=== PATIENT | female | born 1990 | race Caucasian/White ===

== ENCOUNTER 2016-12-02 09:59 | Inpatient (IN) | payer OTHER ==
[~2016-12-02] VITALS: Ht 162.6 cm; Wt 83.6 kg
[~2016-12-02 09:59] MED LIST: MOTRIN 800800 MG/TAB PO; PERCOCET 325 MG1 TA2 PO; PRENATAL1 TA7 PO
[2017-01-07] VITALS (29 sets, daily range): BP systolic 81–132; BP diastolic 44–79; PULSE 83–134; TEMP 97.7–98.8
[2017-01-07 08:41] LABS: BASO # 0.1 (0.0-0.2); BASO % 0.6 % (0.0-2.0); EOS # 0.1 (0.0-0.7); EOS % 0.8 % (0-4.0); GRAN # 10.6 (1.4-6.5); GRAN % 79.7 % (42.2-75.2); LYMPH # 1.6 (1.2-3.4); LYMPH % 11.9 % (20.0-51.0); MEAN CELL VOLUME 88 fl (80.0-100.0); MEAN CORPUSCULAR HGB CONC 33 g/dl (33.0-37.0); MEAN PLATELET VOLUME 11.3 fl (7.4-10.4); MONO # 0.8 (0.1-0.6); MONO % 6.2 % (1.7-9.3); PLATELET COUNT 238 K/mm3 (130-400); RED BLOOD COUNT 3.91 M/mm3 (4.10-5.30); REDCELL DISTRIBUTION WIDTH-CV 13.3 % (11.5-14.5); WHITE BLOOD COUNT 13.3 K/mm3 (4.8-10.8)
[2017-01-07 08:45] LABS: HEMATOCRIT 34.5 % (37.0-47.0); HEMOGLOBIN 11.4 g/dl (12.5-16.0); MEAN CORPUSCULAR HEMOGLOBIN 29 pg (27.0-31.0)
[2017-01-08 01:50] VITALS: BP 110/62; PULSE 79; TEMP 98.6
[2017-01-08 05:30] VITALS: BP 117/71; PULSE 89; TEMP 97.5
[2017-01-08] MEDS ORDERED: IBU800 M1 PO (08:10)
[2017-01-08] MEDS ORDERED: PERCOCET 325 MG1 TA2 PO (08:10)
[2017-01-08 10:00] VITALS: BP 115/77; PULSE 113; TEMP 98
== END 2017-01-08 12:55 | disposition home or self-care (01) | DRG 775 ==
LOC: EDSTATUS 12-29 06:14 → LDRO 12-29 09:59 → LDR 01-07 06:15 → OB 01-07 06:49 → LDR 01-07 06:49 → OB 01-07 15:00
PROVIDERS: Obstetrics & Gynecology
PROC: 10E0XZZ Delivery of Products of Conception, External Approach (ICD-10-PCS; principal; 2017-01-07)
PROC: 3E033VJ Introduction of Other Hormone into Peripheral Vein, Percutaneous Approach (ICD-10-PCS; 2017-01-07)
DX: O75.89 Other specified complications of labor and delivery (principal); Z3A.39 39 weeks gestation of pregnancy; Z37.0 Single live birth
CPT/HCPCS: J2590; J7120

== ENCOUNTER → 2017-01-09 | Outpatient (CLI) | payer OTHER ==
[~2017-01-09] MED LIST changes: +IBU800 M1 PO
--- NOTE | 2017-01-09 11:58 | NUR ---
Pt, Maya Friedman, into office with two day old baby boy, Julio César Friedman, for a consult because they were seen for a follow up bilirubing and it was noted he was not nursing well, and his weight was down more. They are accompanied by her spouse, Silver Friedman. They anticipate following up for care at [facility]. Julio César was born on [birth year] by to this experienced mom. She felt Julio César was doing well with BF during their stay. She has also been her toddler through the and desires to tandem nurse. Julio César weighed 8#10.8oz (3935 gms) at , discharge was 8#8oz and today he weighs 7#14.7oz (3590 gms). Julio César reportedly eats a minimum of 8 feedings per 24 hours, he has had 4 voids in the last 24 hours and no stools since discharge yesterday. Maya's breasts remain soft. She is assisted with compressing more areola into Julio César's mouth but he does not nurse very actively. She agrees to SNS as the advice from the yard loader operator was to supplement until the milk increased. SNS is decribed and they are instructed/assisted with tube placement. Julio César responds well, taking 12 ml on each side. Total weight gain after with SNS is 28gms so he had a little bit of transfer from mom. Rectal stimulation with diaper change after feeding produced a thick dark green stool and a large void. Plan of care: Breastfeed at least 8 times per 24 hours, supplement with SNS each feeding, start with 24ml (2 syringes) per feeding, increase if he demands. Pump after, save any milk as available for supplement. May breastfeed toddler after pumping. As milk supply increases she may taper SNS volume down over 24-48 hours. Follow up tomorrow at [facility] clinic. Questions invited and answered.
== END ==
LOC: OLC 11:29
DX: Z39.1 Encounter for care and examination of lactating mother (principal); Z71.89 Other specified counseling